=== PATIENT | male | born 1955 | race Caucasian/White ===

== ENCOUNTER → 2020-02-06 | Outpatient (CLI) | payer OTHER | LOC: SJCVC 13:04 | PROVIDERS: ATTEND Internal Medicine | DX: R94.31 Abnormal electrocardiogram [ECG] [EKG] (principal); I10 Essential (primary) hypertension; I65.01 Occlusion and stenosis of right vertebral artery; E78.5 Hyperlipidemia, unspecified; H53.8 Other visual disturbances; G47.33 Obstructive sleep apnea (adult) (pediatric); Z79.82 Long term (current) use of aspirin; Z79.899 Other long term (current) drug therapy ==

== ENCOUNTER → 2020-03-02 | Outpatient (CLI) | payer OTHER ==
[~2020-03-02] MED LIST: ASA81BEC PO; CRESTOR20 MG PO; NORVASC 2.5 MG2.5 M1; PLAVIX 75 MG TA75 MG PO; TENORMIN25 MG PO
== END ==
LOC: SJCVC 09:45
PROVIDERS: ATTEND Nuclear Medicine Nuclear Cardiology
DX: I73.9 Peripheral vascular disease, unspecified (principal); I65.01 Occlusion and stenosis of right vertebral artery; E78.00 Pure hypercholesterolemia, unspecified; R42 Dizziness and giddiness; I10 Essential (primary) hypertension; Z79.899 Other long term (current) drug therapy

== ENCOUNTER → 2020-03-04 | Outpatient (CLI) | payer OTHER ==
[~2020-03-04] VITALS: Ht 167.6 cm; Wt 90.7 kg
[2020-03-04 11:31] VITALS: BP 135/88
--- NOTE | 2020-03-04 16:45 | NUR ---
ambulated in hallway without incident
== END | disposition home or self-care (01) ==
LOC: CATH 10:09
PROVIDERS: ATTEND Nuclear Medicine Nuclear Cardiology
DX: I70.1 Atherosclerosis of renal artery (principal); I70.8 Atherosclerosis of other arteries; G45.0 Vertebro-basilar artery syndrome; I73.9 Peripheral vascular disease, unspecified; I70.0 Atherosclerosis of aorta; I67.9 Cerebrovascular disease, unspecified; E78.5 Hyperlipidemia, unspecified; I10 Essential (primary) hypertension; Z98.890 Other specified postprocedural states; Z79.899 Other long term (current) drug therapy; Z98.52 Vasectomy status